=== PATIENT | female | born 1960 | race Asian ===

== ENCOUNTER 2024-03-25 13:16 | Outpatient (RCR) | payer MEDICARE, BC, SELFPAY ==
--- NOTE | 2024-03-25 13:57 | CTCFLWUP_ITS ---
[facility] [address] [place], [place] [address] FOLLOW-UP NOTE Date: 03/25/2024 MR#: [id number] Name: ALLI ELLIS : 1960 Dx: [id number] Malignant neoplasm of thyroid gland Identification. 64-year-old lady with papillary thyroid carcinoma T1b stage I had total thyroidectom y August 19, 2023. There were no high risk features such as angioinvasion lymphatic invasion perineural invasion or extr athyroidal extension and all margins were negative. No lymph nodes submitted. Patient had total body iodine scan performed 12/16/2023. Negative for met disease. Patient is seeing product development intern Dr. Andrae Oliva in [place] who is adjusting her thyroid medica tions. Most recent TSH 03/15/2024 was 0.13 with free T4 high normal at 1.93 Thyroglobulin was 0.4 and antibody less than 1.0 As I see her now patient appears well, the surgery site well-healed in the neck. A#1. Stage I papillary thyroid carcinoma T1b total thyroidectomy August 19, 2023. #2. No sign of mets in total body iodine scan 12/16/2023. #3. Patient's thyroid being adjusted by product development intern with thyroglobulin thyroid antibody at an id eal low level. #4. Being followed by medical oncologist in [place] for breast cancer. #5. I will see her back in 6 months time. Ultrasound of the neck will then be scheduled. Cc: Andrae Yao MD Electronically signed by: Osbaldo Avalos M.D. 03/25/2024 1:55 PM
== END 2024-04-10 23:59 | disposition home or self-care (01) ==
LOC: SCTC 13:16
PROVIDERS: PCP Family Medicine; Referring Provider Family Medicine; Visit Provider Radiology Therapeutic Radiology
DX: C73 Malignant neoplasm of thyroid gland (principal); E89.0 Postprocedural hypothyroidism
CPT/HCPCS: 99213; G0463

== ENCOUNTER 2024-09-22 13:05 | Outpatient (RCR) | payer MEDICARE, BC, SELFPAY ==
--- NOTE | 2024-09-22 13:59 | CTCFLWUP_ITS ---
[facility] [address] [place], [place] [address] FOLLOW-UP NOTE Date: 09/22/2024 MR#: [id number] Name: ALLI ELLIS : 1960 Dx: [id number] Malignant neoplasm of thyroid gland Identification. 64-year-old lady with papillary thyroid carcinoma T1b stage I total thyroidectomy August 19, 2023. There were no high risk features such as angioinvasion lymphatic invasion perineural invasionn no extrathyroidal extension and all margins were negative. No lymph nodes submitted. Had nuclear scan 4 millicuries which was negative for mets disease. Patient is currently being followed by acid patroller who will be ordering CT scan in 2 months according to patient. Reportedly is taking 112 mcg of Synthroid. Thyroid functions being checked by acid patroller. 12/19/2023 labs showed normal calcium.. Patient's thyroglobulin antibody less than 1.0 thyroglobulin less than 0.1 I will see her in 6 months and consider possible ultrasound. Electronically signed by: Osbaldo Avalos M.D. 09/22/2024 1:57 PM
== END 2024-10-09 23:59 | disposition home or self-care (01) ==
LOC: SCTC 13:05
PROVIDERS: PCP Family Medicine; Referring Provider Family Medicine; Visit Provider Radiology Therapeutic Radiology
DX: C73 Malignant neoplasm of thyroid gland (principal); E89.0 Postprocedural hypothyroidism; Z79.890 Hormone replacement therapy
CPT/HCPCS: 99213; G0463

== ENCOUNTER 2025-03-23 13:20 | Outpatient (RCR) | payer MEDICARE, BC, SELFPAY ==
--- NOTE | 2025-03-23 14:54 | CTCFLWUP_ITS ---
[facility] [address] [place], [place] [address] FOLLOW-UP NOTE Date: 03/23/2025 MR#: [id number] Name: ALLI ELLIS : 1960 Dx: [id number] Malignant neoplasm of thyroid gland Identification. 65-year-old lady with proper thyroid carcinoma T1b stage I total thyroidectomy 12/19/2023. There were no high risk features such as angioinvasion lymphatic invasion perineural invasion no extrathyroidal extension and all margins were negative. No lymph nodes were submitted. Had 4 mCi of diagnostic iodine scan which was negative for mets disease. Currently seeing product marketing director with Synthroid that was decreased to 100 mcg recently. Her TSH was quite low with her free T4 above normal limits. Patient appears well overall. Told her to get thyroglobulin thyroid antibody for next visit in 6 months with ultrasound of the neck prior. Electronically signed by: Osbaldo Avalos M.D. 03/23/2025 2:51 PM
== END 2025-04-10 23:59 | disposition home or self-care (01) ==
LOC: SCTC 13:20
PROVIDERS: PCP Family Medicine; Referring Provider Family Medicine; Visit Provider Radiology Therapeutic Radiology
DX: C73 Malignant neoplasm of thyroid gland (principal); E89.0 Postprocedural hypothyroidism; Z79.890 Hormone replacement therapy
CPT/HCPCS: 99213; G0463